=== PATIENT | female | born 1975 | race Caucasian/White ===

== ENCOUNTER 2016-07-23 07:20 | Emergency (ER) | payer OTHER ==
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
[~2016-07-23 07:20] MED LIST: LEXAPRO DPS10 MG PO; MOTRIN IB200 MG PO; SYNTHROID75 MCG PO; TYLENOL DPS325 MG PO
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
== END 2016-07-23 14:00 | disposition expired ==
LOC: ER 07:20
PROC: 0BH17EZ Insertion of Endotracheal Airway into Trachea, Via Natural or Artificial Opening (ICD-10-PCS; principal; 2016-07-23)
PROC: 5A12012 Performance of Cardiac Output, Single, Manual (ICD-10-PCS; principal; 2016-07-23)
DX: S01.80XA Unspecified open wound of other part of head, initial encounter (principal); S11.90XA Unspecified open wound of unspecified part of neck, initial encounter; Z88.1 Allergy status to other antibiotic agents; Z88.7 Allergy status to serum and vaccine; Z88.8 Allergy status to other drugs, medicaments and biological substances; Z79.899 Other long term (current) drug therapy